=== PATIENT | male | born 1995 | race Caucasian/White ===

== ENCOUNTER 2019-03-26 21:55 | Emergency (ER) | payer OTHER ==
[2019-03-26] MEDS ORDERED: NA CHLORIDE 0.9% 1,000 ML ONE (22:46)
[2019-03-26] MEDS ORDERED: FAMOTIDINE 20 MG/2 ML VIAL IV ONE (22:46)
[2019-03-26] MEDS ORDERED: ONDANSETRON 4 MG/2 ML VIAL ONE (22:46)
[2019-03-26 23:20] LABS: Basophils % 0.7 % (0-1.3); Hematocrit 40.6 % (39.6-49.0); Lymphocytes % 26.8 % (15.3-44.8); RBC Red Blood Cell Count 4.82 M/uL (4.33-5.43); Urine Blood NEGATIVE (NEG); Urine Glucose NEGATIVE (NEG); Urine Protein NEGATIVE (NEG); Urine Specific Gravity >1.030 (1.005-1.030); Urine pH 5.5 (5.0-7.0)
[2019-03-26 23:37] LABS: ALT/SGPT 22 U/L (12-78); AST/SGOT 13 U/L (15-37); Albumin 3.8 g/dL (3.4-5.0); Alkaline Phosphatase 83 U/L (45-117); BUN Blood Urea Nitrogen 13 mg/dL (7-18); Bicarbonate 28 mmol/L (21-32); Bilirubin Direct 0.1 mg/dL (0-0.2); Bilirubin Total 0.3 mg/dL (0.2-1.0); Glucose Level 89 mg/dL (74-106); Lipase 85 U/L (73-393); Potassium 3.9 mmol/L (3.5-5.1); Protein, Total 7.3 g/dL (6.4-8.2); Sodium Level 141 mmol/L (136-145)
--- NOTE | 2019-03-27 00:21 | EDPHYS ---
Physician Documentation [facility] Name: Bang Goldstein Age: 23 yrs Sex: Male : 1995 Arrival Date: 03/26/2019 Time: 21:58 Bed 19 Private MD: ED Physician Hemanth Ortiz HPI: 03/26 22:40 This 23 yrs old Male presents to ER via Ambulatory with complaints of Abd cp Pain > 50 y/o. 22:40 The patient presents with abdominal pain in the epigastric area. Onset: The cp symptoms/episode began/occurred last night. The symptoms radiate to back. Associated signs and symptoms: Pertinent positives: nausea, Pertinent negatives: blood in stools, constipation, diarrhea, fever, testicular pain, vomiting. The symptoms are described as waxing/waning. Severity of pain: in the emergency department the pain has improved mildly. Historical: - Allergies: 22:04 No Known Allergies; aj1 - Home Meds: 22:04 None [Active]; aj1 - PMHx: 22:04 None; aj1 - PSHx: 22:04 Appendectomy; aj1 - Immunization history:: Flu vaccine is not up to date. - Social history:: Smoking status: Patient/guardian denies using tobacco. - Ebola Screening: : Patient denies travel to an Ebola-affected area in the 21 days before illness onset. ROS: 22:50 Constitutional: Negative for body aches, chills, fever, poor PO intake. cp 22:50 Eyes: Negative for injury, pain, redness, and discharge. cp 22:50 ENT: Negative for drainage from ear(s), ear pain, sore throat, difficulty swallowing, difficulty handling secretions. 22:50 Cardiovascular: Negative for chest pain, edema, palpitations. 22:50 Respiratory: Negative for shortness of breath, wheezing. 22:50 Abdomen/GI: Positive for abdominal pain, nausea, Negative for vomiting, diarrhea, constipation, black/tarry stool, rectal bleeding. 22:50 Back: Positive for radiated pain. 22:50 Skin: Negative for rash. 22:50 Neuro: Negative for altered mental status, headache, weakness. 22:50 All other systems are negative. Exam: 22:55 Constitutional: The patient appears in no acute distress, alert, awake, non-toxic, well cp developed, well nourished. 22:55 Head/Face: Normocephalic, atraumatic. cp 22:55 Eyes: Periorbital structures: appear normal, Conjunctiva: normal, no exudate, no injection, Sclera: no appreciated abnormality, Lids and lashes: appear normal, bilaterally. 22:55 ENT: External ear(s): are unremarkable, Ear canal(s): are normal, clear, TM's: are normal, no evidence of bulging, no erythema, Nose: is normal, Mouth: is normal, Posterior pharynx: is normal, airway is patent, no erythema, no exudate. 22:55 Chest/axilla: Inspection: normal, Palpation: is normal, no crepitus, no tenderness. 22:55 Cardiovascular: Rate: normal, Rhythm: regular, Heart sounds: murmur, not appreciated. 22:55 Respiratory: the patient does not display signs of respiratory distress, Respirations: normal, no use of accessory muscles, no retractions, no splinting, no tachypnea, labored breathing, is not present, Breath sounds: are clear throughout, no decreased breath sounds, no stridor, no wheezing. 22:55 Abdomen/GI: Inspection: abdomen appears normal, Bowel sounds: active, all quadrants, Palpation: soft, in all quadrants, mild abdominal tenderness, in the epigastric area, rebound tenderness, is not appreciated, voluntary guarding, is not appreciated. 22:55 Back: ROM is normal. Vital Signs: 22:04 BP 134 / 90; Pulse 61; Resp 18; Temp 98.1; Pulse Ox 100% on R/A; Weight 102.51 kg (R); aj1 Height 6 ft. 1 in. (185.42 cm) (R); 23:20 BP 118 / 69; Pulse 56; Resp 17; Pulse Ox 100% ; rr5 03/27 00:10 BP 126 / 78; Pulse 62; Resp 18; Temp 98; Pulse Ox 99% on R/A; rr5 03/26 22:04 Body Mass Index 29.82 (102.51 kg, 185.42 cm) aj1 MDM: 03/26 22:06 Patient medically screened. cp 03/27 00:00 Differential diagnosis: appendicitis, cholecystitis, Cholelithiasis, gastritis, cp gastroesophageal reflux disease, pancreatitis, Peptic Ulcer Disease, Perf. Duodenal Ulcer, Perf. Gastric Ulcer. 00:20 Data reviewed: vital signs, nurses notes, lab test result(s), radiologic studies, cp ultrasound. 00:20 Counseling: I had a detailed discussion with the patient and/or guardian regarding: the cp historical points, exam findings, and any diagnostic results supporting the discharge/admit diagnosis, lab results, radiology results, the need for outpatient follow up, a family practitioner, to return to the emergency department if symptoms worsen or persist or if there are any questions or concerns that arise at home. Special discussion: Based on the patient's Hx, exam, and Dx evaluation, there is no indication for emergent surgery or inpatient Tx. It is understood by the patient/guardian that if the Sx's persist or worsen they need to return immediately for re-evaluation. 03/26 22:37 Order name: Basic Metabolic Panel; Complete Time: 00:14 cp 03/26 22:37 Order name: CBC with Diff; Complete Time: 00:14 cp 03/27 00:14 Interpretation: Normal except: WBC 11.1; MCV 84.3. cp 03/26 22:37 Order name: Creatinine for Radiology; Complete Time: 00:14 cp 03/26 22:37 Order name: Hepatic Function; Complete Time: 00:14 cp 03/26 22:37 Order name: Lipase; Complete Time: 00:14 cp 03/26 23:05 Order name: Urine Dipstick--Ancillary (enter results) ar5 03/26 22:37 Order name: IV Saline Lock; Complete Time: 23:14 cp 03/26 22:37 Order name: Labs collected and sent; Complete Time: 23:14 cp 03/26 22:37 Order name: Urine Dipstick-Ancillary (obtain specimen); Complete Time: 23:16 cp 03/26 22:38 Order name: US Abdomen Limited cp 03/26 22:38 Order name: NPO; Complete Time: 22:58 cp 03/27 00:15 Order name: PO challenge; Complete Time: 00:26 cp Administered Medications: 03/26 23:10 Drug: NS 0.9% 1000 ml Route: IV; Rate: 1 bolus; Site: right antecubital; rr5 03/27 00:10 Follow up: Response: No adverse reaction; IV Status: Completed infusion; IV Intake: rr5 1000ml 03/26 23:11 Drug: Pepcid 20 mg Route: IVP; Site: right antecubital; rr5 03/27 00:10 Follow up: Response: No adverse reaction rr5 03/26 23:13 Drug: Zofran 4 mg Route: IVP; Site: right antecubital; rr5 03/27 00:10 Follow up: Response: No adverse reaction rr5 Disposition: 03/27/19 00:20 Discharged to Home. Impression: Epigastric pain. - Condition is Stable. - Discharge Instructions: Abdominal Pain, Adult. - Prescriptions for Protonix 40 mg Oral Tablet, Delayed Release (E.C.) - take 1 tablet by ORAL route once daily; 10 tablet. Zofran 4 mg Oral Tablet - take 1 tablet by ORAL route every 12 hours As needed; 20 tablet. - Medication Reconciliation Form, Thank You Letter, Antibiotic Education, Prescription Opioid Use, Work release form form. - Follow up: Private Physician; When: 2 - 3 days; Reason: Recheck today's complaints. - Problem is new. - Symptoms have improved. Addendum: 03/29/2019 08:58 Co-signature as Attending Physician, Hemanth Ortiz MD I agree with the assessment and c gandhi plan of care. Signatures: Dispatcher [employer] EDDonna Means RN RN aj1 Hemanth Ortiz MD MD cha Page, Corey, PA PA cp Roque, Raymond, RN RN rr5 Corrections: (The following items were deleted from the chart) 03/27 00:29 00:20 03/27/2019 00:20 Discharged to Home. Impression: Epigastric pain. Condition is rr5 Stable. Forms are Medication Reconciliation Form, Thank You Letter, Antibiotic Education, Prescription Opioid Use. Follow up: Private Physician; When: 2 - 3 days; Reason: Recheck today's complaints. Problem is new. Symptoms have improved. cp
--- NOTE | 2019-03-27 00:21 | ER ---
Nurse's Notes [facility] Name: Bang Goldstein Age: 23 yrs Sex: Male : 1995 Arrival Date: 03/26/2019 Time: 21:58 Bed 19 Private MD: Diagnosis: Epigastric pain Presentation: 03/26 22:00 Presenting complaint: Patient states: "I just went to the Urgent Care, the past couple aj1 days I've had flu like symptoms, I dealt with that but Im still having nausea and fatigue and last night I started having abdominal pain. It got to the point that my stomach was cramping really bad, but I'm not throwing up, but its not coming out the other way either. I went to urgent care to get Phenergan or Zofran, but they suggested it sounded like gallstones and said to go to the ER" Patient reports epigastric pain that radiates to his back. Reports that pain does not get worse with eating or drinking. Transition of care: patient was not received from another setting of care. Onset of symptoms was March 26, 2019. Risk Assessment: Do you want to hurt yourself or someone else? Patient reports no desire to harm self or others. Initial Sepsis Screen: Does the patient meet any 2 criteria? No. Patient's initial sepsis screen is negative. Does the patient have a suspected source of infection? No. Patient's initial sepsis screen is negative. Care prior to arrival: None. 22:00 Method Of Arrival: Ambulatory aj1 22:00 Acuity: CAL 3 aj1 Triage Assessment: 22:04 General: Appears in no apparent distress. comfortable, Behavior is calm, cooperative, aj1 appropriate for age. Pain: Complains of pain in epigastric area Pain currently is 7 out of 10 on a pain scale. Neuro: Level of Consciousness is awake, alert, obeys commands. Cardiovascular: Patient's skin is warm and dry. GI: Reports upper abdominal pain. Historical: - Allergies: 22: No Known Allergies; aj1 - Home Meds: 22:04 None [Active]; aj1 - PMHx: 22:04 None; aj1 - PSHx: 22:04 Appendectomy; aj1 - Immunization history:: Flu vaccine is not up to date. - Social history:: Smoking status: Patient/guardian denies using tobacco. - Ebola Screening: : Patient denies travel to an Ebola-affected area in the 21 days before illness onset. Screenin:21 Abuse screen: Denies threats or abuse. Denies injuries from another. Nutritional rr5 screening: No deficits noted. Tuberculosis screening: No symptoms or risk factors identified. Fall Risk IV access (20 points). Total Elam Fall Scale indicates No Risk (0-24 pts). Assessment: 22:00 General: Appears in no apparent distress. comfortable, Behavior is calm, cooperative, rr5 appropriate for age, Reports feeling ill for fatigue for. Pain: Complains of pain in epigastric area Pain does not radiate. Pain currently is 6 out of 10 on a pain scale. Quality of pain is described as crampy, Pain began gradually, Is intermittent. 22:00 Neuro: Level of Consciousness is awake, alert, obeys commands, Oriented to person, rr5 place, time, situation, Appropriate for age. Cardiovascular: Capillary refill < 3 seconds Patient's skin is warm and dry. Respiratory: Reports flu like symptoms Airway is patent Respiratory effort is even, unlabored, Respiratory pattern is regular, symmetrical. GI: Abdomen is round non-distended, Bowel sounds present X 4 quads. Abd is soft and non tender Reports upper abdominal pain, cramping, nausea. : No signs and/or symptoms were reported regarding the genitourinary system. EENT: No signs and/or symptoms were reported regarding the EENT system. Derm: Skin is intact, Skin temperature is warm. Musculoskeletal: Circulation, motion, and sensation intact. Capillary refill < 3 seconds. 23:00 Reassessment: Patient appears in no apparent distress at this time. No changes from rr5 previously documented assessment. Patient and/or family updated on plan of care and expected duration. Pain level reassessed. Patient is alert, oriented x 3, equal unlabored respirations, skin warm/dry/pink. awaiting for results. 03/27 00:20 Reassessment: Patient appears in no apparent distress at this time. Patient is alert, rr5 oriented x 3, equal unlabored respirations, skin warm/dry/pink. no vomiting noted. patient ate some snacks. discharge instruction given and explained without complaints made, verbalized understanding. Patient states symptoms have improved. Vital Signs: 03/26 22:04 BP 134 / 90; Pulse 61; Resp 18; Temp 98.1; Pulse Ox 100% on R/A; Weight 102.51 kg (R); aj1 Height 6 ft. 1 in. (185.42 cm) (R); 23:20 BP 118 / 69; Pulse 56; Resp 17; Pulse Ox 100% ; rr5 03/27 00:10 BP 126 / 78; Pulse 62; Resp 18; Temp 98; Pulse Ox 99% on R/A; rr5 03/26 22:04 Body Mass Index 29.82 (102.51 kg, 185.42 cm) aj1 ED Course: 03/26 21:58 Patient arrived in ED. ag3 22:00 Hemanth Garibay PA is PHCP. cp 22:00 Hemanth Ortiz MD is Attending Physician. cp 22:03 Triage completed. aj1 22:04 Arm band placed on Patient placed in an exam room. aj1 22:05 Patient has correct armband on for positive identification. Bed in low position. Call rr5 light in reach. 22:05 No provider procedures requiring assistance completed. rr5 22:15 Benjamin Small, RN is Primary Nurse. rr5 23:02 US Abdomen Limited In Process Unspecified. EDMS 23:05 Inserted saline lock: 18 gauge in right antecubital area, using aseptic technique. ds4 Blood collected. 23:14 Lipase Sent. ds4 23:14 Hepatic Function Sent. ds4 23:14 Creatinine for Radiology Sent. ds4 23:14 CBC with Diff Sent. ds4 23:14 Basic Metabolic Panel Sent. ds4 03/27 00:20 IV discontinued, intact, bleeding controlled, No redness/swelling at site. Pressure rr5 dressing applied. Administered Medications: 03/26 23:10 Drug: NS 0.9% 1000 ml Route: IV; Rate: 1 bolus; Site: right antecubital; rr5 03/27 00:10 Follow up: Response: No adverse reaction; IV Status: Completed infusion; IV Intake: rr5 1000ml 03/26 23:11 Drug: Pepcid 20 mg Route: IVP; Site: right antecubital; rr5 03/27 00:10 Follow up: Response: No adverse reaction rr5 03/26 23:13 Drug: Zofran 4 mg Route: IVP; Site: right antecubital; rr5 03/27 00:10 Follow up: Response: No adverse reaction rr5 Intake: 00:10 IV: 1000ml; Total: 1000ml. rr5 Outcome: 00:20 Discharge ordered by . cp 00:20 Discharged to home ambulatory, with family. rr5 00:20 Condition: stable 00:20 Discharge instructions given to patient, Instructed on discharge instructions, follow up and referral plans. medication usage, Demonstrated understanding of instructions, follow-up care, medications, Prescriptions given X 2. 00:29 Patient left the ED. rr5 Signatures: Dispatcher [employer] EDDonna Means, RN RN aj1 Gordon Sylvester ds4 Hemanth Garibay PA PA cp Gomez, Alice ag3 Benjamin Small, RN RN rr5
[2019-03-27 01:03] VITALS: TEMP 98.1; O2SAT 100
[2019-03-27 01:05] VITALS: BP 118/69
--- NOTE | 2019-03-27 07:56 | RAD REPORT ---
EXAM DESCRIPTION: US - Abdomen Exam Limited - 03/26/2019 11:13 pm CLINICAL HISTORY: Abdominal pain. 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 A gallstone is not seen. The biliary tree is normal caliber. IMPRESSION: Grossly normal gallbladder ultrasound
== END 2019-03-27 00:29 | disposition home or self-care (01) ==
LOC: ER 21:55
DX: R10.13 Epigastric pain (principal)
CPT/HCPCS: 96361; 85025; 80048; 36415; 80076; 81003; 83690; 76705; 96375; 96374; 99284; J7030; J2405

== ENCOUNTER 2019-03-29 16:34 | Emergency (ER) | payer OTHER ==
[2019-03-29] MEDS ORDERED: MORPHINE 4 MG/ML SYR ONE (17:13)
[2019-03-29] MEDS ORDERED: ONDANSETRON 4 MG/2 ML VIAL ONE (17:13)
[2019-03-29] MEDS ORDERED: NA CHLORIDE 0.9% 1,000 ML ONE ×2 (17:14→18:40)
[2019-03-29] MEDS ORDERED: FAMOTIDINE 20 MG/2 ML VIAL IV ONE (17:14)
[2019-03-29 17:30] LABS: Absolute Lymphocytes (CBC) 1.7 K/uL (0.7-4.9); Basophils % 0.5 % (0-1.3); Lymphocytes % 15.3 % (15.3-44.8); MPV 9.1 fL (7.6-11.3); RBC Red Blood Cell Count 5.54 M/uL (4.33-5.43)
[2019-03-29 17:41] LABS: Albumin 4.3 g/dL (3.4-5.0); Bilirubin Direct 0.2 mg/dL (0-0.2); Bilirubin Total 0.8 mg/dL (0.2-1.0); Potassium 4.1 mmol/L (3.5-5.1); Protein, Total 8.5 g/dL (6.4-8.2)
[2019-03-29] MEDS ORDERED: METRONIDAZOLE 500mg IVPB 500 MG/100 ML BAG IV ONE (18:40)
[2019-03-29] MEDS ORDERED: CIPROFLOXACIN 400mg IV 400 MG/200 ML BAG IV ONE (18:40)
[2019-03-29 18:55] LABS: Urine Blood NEGATIVE (NEG); Urine Glucose NEGATIVE (NEG); Urine Protein NEGATIVE (NEG); Urine Specific Gravity 1.015 (1.005-1.030)
--- NOTE | 2019-03-29 19:52 | RAD REPORT ---
EXAM DESCRIPTION: CT - Abdomen Pelvis W Contrast - 03/29/2019 7:40 pm CLINICAL HISTORY: Abdominal pain. COMPARISON: None. TECHNIQUE: Computed axial tomography of the abdomen and pelvis was obtained. 100 cc Isovue-300 is ad ministered intravenously. Oral contrast was given. All CT scans are performed using dose optimization technique as appropriate and may include automated exposure control or mA/KV adjustment according to patient size. FINDINGS: Mild fatty liver The Spleen, pancreas, adrenals and kidneys appear unremarkable. There is no evidence of diverticulitis The wall of the distal stomach appears mildly thickened. The stomach is mildly distended IMPRESSION: Mild thickening of the wall of the distal stomach may indicate gastritis
[2019-03-29] MEDS ORDERED: PANTOPRAZOLE 40 MG INJ ONE (20:03)
[2019-03-29] MEDS ORDERED: LIDOCAINE VISCOUS 2% SOLN 15 ML UDC ONE (20:03)
[2019-03-29] MEDS ORDERED: MAGNE/ALUM HYDROXD 30 ML UCUP ONE (20:03)
--- NOTE | 2019-03-29 21:01 | EDPHYS ---
Physician Documentation [facility] Name: Bang Goldstein Age: 23 yrs Sex: Male : 1995 Arrival Date: 03/29/2019 Time: 16:36 Bed 18 Private MD: Elian Nicole B ED Physician Hemanth Ortiz HPI: 03/29 17:21 This 23 yrs old Male presents to ER via Ambulatory with complaints of vladimir Abdominal Pain. 17:21 The patient presents with abdominal pain abdominal distention. Onset: The vladimir symptoms/episode began/occurred 3 day(s) ago. The patient presents to the emergency department with nausea, vomiting, abdominal pain, of the anterior aspect of right lateral abdomen, posterior aspect of right lateral abdomen, right upper quadrant and right lower quadrant. Onset: The symptoms/episode began/occurred 3 day(s) ago. Possible causes: unknown. The symptoms are aggravated by nothing. The symptoms are alleviated by nothing. The symptoms do not radiate. Associated signs and symptoms: The patient has no apparent associated signs or symptoms. Historical: - Allergies: 16:37 No Known Allergies; tw2 - Home Meds: 16:37 None [Active]; tw2 - PMHx: 16:37 None; tw2 - PSHx: 16:37 Appendectomy; tw2 16:48 Hernia repair; tw2 - Immunization history:: Adult Immunizations. - Social history:: Smoking status: . - Ebola Screening: : Patient denies travel to an Ebola-affected area in the 21 days before illness onset. ROS: 17:22 Constitutional: Negative for fever, chills, and weight loss, Eyes: Negative for injury, vladimir pain, redness, and discharge, ENT: Negative for injury, pain, and discharge, Neck: Negative for injury, pain, and swelling, Cardiovascular: Negative for chest pain, palpitations, and edema, Respiratory: Negative for shortness of breath, cough, wheezing, and pleuritic chest pain, Back: Negative for injury and pain, : Negative for injury, bleeding, discharge, and swelling, MS/Extremity: Negative for injury and deformity, Skin: Negative for injury, rash, and discoloration, Neuro: Negative for headache, weakness, numbness, tingling, and seizure, Psych: Negative for depression, anxiety, suicide ideation, homicidal ideation, and hallucinations, Allergy/Immunology: Negative for hives, rash, and allergies, Endocrine: Negative for neck swelling, polydipsia, polyuria, polyphagia, and marked weight changes, Hematologic/Lymphatic: Negative for swollen nodes, abnormal bleeding, and unusual bruising. 17:22 Abdomen/GI: Positive for abdominal pain, nausea, abdominal cramps, abdominal distension, of the right upper quadrant, left upper quadrant, right lower quadrant and left lower quadrant. Exam: 17:22 Constitutional: This is a well developed, well nourished patient who is awake, alert, vladimir and in no acute distress. Head/Face: Normocephalic, atraumatic. Eyes: Pupils equal round and reactive to light, extra-ocular motions intact. Lids and lashes normal. Conjunctiva and sclera are non-icteric and not injected. Cornea within normal limits. Periorbital areas with no swelling, redness, or edema. ENT: Nares patent. No nasal discharge, no septal abnormalities noted. Tympanic membranes are normal and external auditory canals are clear. Oropharynx with no redness, swelling, or masses, exudates, or evidence of obstruction, uvula midline. Mucous membranes moist. Neck: Trachea midline, no thyromegaly or masses palpated, and no cervical lymphadenopathy. Supple, full range of motion without nuchal rigidity, or vertebral point tenderness. No Meningismus. Chest/axilla: Normal chest wall appearance and motion. Nontender with no deformity. No lesions are appreciated. Cardiovascular: Regular rate and rhythm with a normal S1 and S2. No gallops, murmurs, or rubs. Normal PMI, no JVD. No pulse deficits. Respiratory: Lungs have equal breath sounds bilaterally, clear to auscultation and percussion. No rales, rhonchi or wheezes noted. No increased work of breathing, no retractions or nasal flaring. Back: No spinal tenderness. No costovertebral tenderness. Full range of motion. Male : Normal genitalia with no discharge or lesions. Skin: Warm, dry with normal turgor. Normal color with no rashes, no lesions, and no evidence of cellulitis. MS/ Extremity: Pulses equal, no cyanosis. Neurovascular intact. Full, normal range of motion. Neuro: Awake and alert, GCS 15, oriented to person, place, time, and situation. Cranial nerves II-XII grossly intact. Motor strength 5/5 in all extremities. Sensory grossly intact. Cerebellar exam normal. Normal gait. Psych: Awake, alert, with orientation to person, place and time. Behavior, mood, and affect are within normal limits. 17:22 Abdomen/GI: Inspection: distension, that is mild, Bowel sounds: hyperactive, Palpation: mild abdominal tenderness, in the right upper quadrant and right lower quadrant, Liver: no appreciated palpable abnormalities, Hernia: not appreciated. Vital Signs: 16:48 BP 141 / 90; Pulse 85; Resp 18; Temp 98.1(TE); Pulse Ox 99% on R/A; Weight 99.34 kg tw2 (R); Height 6 ft. 1 in. (185.42 cm); Pain 6/10; 17:44 BP 125 / 81; Pulse 57; Resp 16 S; Pulse Ox 100% on R/A; ca1 18:45 BP 122 / 69; Pulse 72; Resp 16 S; Pulse Ox 100% on R/A; ca1 19:12 BP 122 / 69; Pulse 76; Resp 18; Pulse Ox 100% ; ca1 20:30 BP 101 / 67; Pulse 70; Resp 18; Pulse Ox 100% ; wh 16:48 Body Mass Index 28.89 (99.34 kg, 185.42 cm) tw2 MDM: 16:49 Patient medically screened. [facility] 17:22 Data reviewed: vital signs, nurses notes, lab test result(s), radiologic studies, CT vladimir scan. 03/29 16:54 Order name: Basic Metabolic Panel; Complete Time: 18:31 [facility] 03/29 16:54 Order name: CBC with Diff; Complete Time: 18:31 [facility] 03/29 16:54 Order name: Creatinine for Radiology; Complete Time: 18:31 [facility] 03/29 16:54 Order name: Hepatic Function; Complete Time: 18:31 [facility] 03/29 16:54 Order name: Lipase; Complete Time: 18:31 [facility] 03/29 16:54 Order name: Urine Culture [facility] 03/29 16:54 Order name: CT Abd/Pelvis - PO and IV Contrast [facility] 03/29 18:53 Order name: Urine Dipstick--Ancillary (enter results) 03/29 18:56 Order name: Urine Dipstick-Ancillary; Complete Time: 19:56 [facility] 03/29 16:54 Order name: IV Saline Lock; Complete Time: 17:09 [facility] 03/29 16:54 Order name: Labs collected and sent; Complete Time: 17: [facility] 03/29 16:54 Order name: Urine Dipstick-Ancillary (obtain specimen); Complete Time: 19:00 [facility] Administered Medications: 17:15 Drug: NS 0.9% 1000 ml Route: IV; Rate: 1 bolus; Site: right antecubital; ca1 18:44 Follow up: Response: No adverse reaction; IV Status: Completed infusion; IV Intake: ca1 1000ml 17:17 Drug: Zofran 4 mg Route: IVP; Site: right antecubital; ca1 18:44 Follow up: Response: No adverse reaction; Nausea is decreased; RASS: Alert and Calm (0) ca1 17:23 Drug: Pepcid 20 mg Route: IVP; Site: right antecubital; ca1 18:44 Follow up: Response: No adverse reaction ca1 17:29 Drug: morphine 4 mg {Note: RASS - 0.} Route: IVP; Site: right antecubital; ca1 18:43 Follow up: Response: No adverse reaction; Pain is decreased; RASS: Alert and Calm (0) [facility] 18:43 Drug: Flagyl 500 mg Volume: 100 ml; Route: IVPB; Rate: 200 ml/hr; Infused Over: 30 ca1 mins; Site: right antecubital; 21:28 Follow up: Response: No adverse reaction; IV Status: Completed infusion 18:43 Drug: NS 0.9% 1000 ml Route: IV; Rate: 1 bolus; Site: right antecubital; [facility] 21:28 Follow up: Response: No adverse reaction; IV Status: Completed infusion 19:55 Drug: Cipro 400 mg Volume: 200 ml; Route: IVPB; Infused Over: 60 mins; Site: right antecubital; 21:28 Follow up: Response: No adverse reaction; IV Status: Completed infusion 20:10 Drug: ProTONIX 80 mg Route: IVP; Site: right antecubital; 21:28 Follow up: Response: No adverse reaction 20:12 Drug: GI Cocktail without - (Maalox Suspension 30 ml, Lidocaine Liquid 2 % 15 wh ml) Route: PO; 21:28 Follow up: Response: No adverse reaction; Pain is decreased Disposition: 03/29/19 21:00 Discharged to Home. Impression: Abdominal tenderness, Gastritis, unspecified, Vomiting. - Condition is Stable. - Discharge Instructions: Abdominal Pain, Adult, Gastritis, Adult, Nausea and Vomiting, Adult, Gastritis, Adult, [id number], Nausea and Vomiting, Adult, [id number], Abdominal Pain, Adult, [id number]. - Prescriptions for Bentyl 20 mg Oral Tablet - take 1 tablet by ORAL route every 6 hours As needed; 20 tablet. Protonix 40 mg Oral Tablet - take 1 tablet by ORAL route once daily; 30 tablet. Tylenol- Codeine #3 300-30 mg Oral Tablet - take 2 tablets by ORAL route every 6 hours As needed; 20 tablet. Zofran 4 mg Oral Tablet - take 1 tablet by ORAL route every 12 hours As needed; 20 tablet. Carafate 1 gram Oral Tablet - take 1 tablet by ORAL route 4 times per day take on an empty stomach, beginning on waking and last dose at bedtime; 100 tablet. - Medication Reconciliation Form, Thank You Letter, Antibiotic Education, Prescription Opioid Use form. - Follow up: Elian Nicole MD; When: 2 - 3 days; Reason: Recheck today's complaints, Continuance of care, Re-evaluation by your physician. Follow up: Kam Devlin MD; When: 2 - 3 days; Reason: Recheck today's complaints, Re-evaluation by your physician. - Problem is new. - Symptoms have improved. Signatures: Dispatcher [employer] EDTX Hemanth Ortiz MD MD cha Wise, Tara, RN RN tw2 Oliver Sotelo Cheryl, RN RN ca1 Corrections: (The following items were deleted from the chart) 21:29 21:00 03/29/2019 21:00 Discharged to Home. Impression: Abdominal tenderness; Gastritis, wh unspecified; Vomiting. Condition is Stable. Forms are Medication Reconciliation Form, Thank You Letter, Antibiotic Education, Prescription Opioid Use. Follow up: Elian Nicole; When: 2 - 3 days; Reason: Recheck today's complaints, Continuance of care, Re-evaluation by your physician. Follow up: Kam Devlin; When: 2 - 3 days; Reason: Recheck today's complaints, Re-evaluation by your physician. Problem is new. Symptoms have improved. vladimir
--- NOTE | 2019-03-29 21:01 | ER ---
Nurse's Notes [facility] Name: Bang Goldstein Age: 23 yrs Sex: Male : 1995 Arrival Date: 03/29/2019 Time: 16:36 Bed 18 Private MD: Elian Nicole B Diagnosis: Abdominal tenderness;Gastritis, unspecified;Vomiting Presentation: 03/29 16:38 Transition of care: patient was not received from another setting of care. Onset of tw2 symptoms was March 29, 2019. Risk Assessment: Do you want to hurt yourself or someone else? Patient reports no desire to harm self or others. Initial Sepsis Screen: Does the patient meet any 2 criteria? No. Patient's initial sepsis screen is negative. Does the patient have a suspected source of infection? No. Patient's initial sepsis screen is negative. Care prior to arrival: None. 16:38 Acuity: CAL 3 tw2 16:38 Method Of Arrival: Ambulatory tw2 16:46 Presenting complaint: Patient states: abdominal pain started Friday, i had some tw2 headcold symptoms, took a whole bunch of medicine dayquil, mucinex, lara, between then and now i have increased and worsening stomach pain and cramps, i feel nauseous, denies diarrhea, i feel like i havent been passing much of stool that i feel i should have, dr. nicole thinks i might have a partial blockage from some scar tissue from appendicitis i had. 16:48 Presenting complaint: Patient states: and i have really bad heartburn. tw2 Triage Assessment: 16:37 General: Appears in no apparent distress. Behavior is calm, cooperative, appropriate tw2 for age. Pain: Complains of pain in abdomen. GI: Reports lower abdominal pain, upper abdominal pain, diarrhea. Historical: - Allergies: 16:37 No Known Allergies; tw2 - Home Meds: 16:37 None [Active]; tw2 - PMHx: 16:37 None; tw2 - PSHx: 16:37 Appendectomy; tw2 16:48 Hernia repair; tw2 - Immunization history:: Adult Immunizations. - Social history:: Smoking status: . - Ebola Screening: : Patient denies travel to an Ebola-affected area in the 21 days before illness onset. Screenin:37 Abuse screen: Denies threats or abuse. Nutritional screening: No deficits noted. tw2 Tuberculosis screening: No symptoms or risk factors identified. Fall Risk None identified. Assessment: 17:00 General: Appears in no apparent distress. comfortable, Behavior is calm, cooperative, ca1 appropriate for age. Pain: Complains of pain in abdomen Pain radiates to low back area Pain currently is 6 out of 10 on a pain scale. at worst was 9 out of 10 on a pain scale. Quality of pain is described as crampy, dull, Pain began 5 days ago Is continuous. Neuro: Level of Consciousness is awake, alert, obeys commands, Oriented to person, place, time, situation. Cardiovascular: Heart tones S1 S2 present Capillary refill < 3 seconds Patient's skin is warm and dry. Respiratory: Airway is patent Respiratory effort is even, unlabored, Respiratory pattern is regular, symmetrical, Breath sounds are clear bilaterally. GI: Bowel sounds present X 4 quads. Abd is soft X 4 quads Abdomen is tender to palpation in right lower quadrant Reports nausea. : No deficits noted. No signs and/or symptoms were reported regarding the genitourinary system. EENT: No deficits noted. No signs and/or symptoms were reported regarding the EENT system. Derm: Skin is intact, is healthy with good turgor, Skin is pink, warm \T\ dry. Musculoskeletal: Circulation, motion, and sensation intact. Capillary refill < 3 seconds. 17:44 Reassessment: Patient appears in no apparent distress at this time. Patient and/or ca1 family updated on plan of care and expected duration. Pain level reassessed. Patient is alert, oriented x 3, equal unlabored respirations, skin warm/dry/pink. 18:45 Reassessment: Patient appears in no apparent distress at this time. Patient and/or ca1 family updated on plan of care and expected duration. Pain level reassessed. Patient is alert, oriented x 3, equal unlabored respirations, skin warm/dry/pink. Pending CT scan. 19:12 Reassessment: Patient appears in no apparent distress at this time. Patient and/or ca1 family updated on plan of care and expected duration. Pain level reassessed. Patient is alert, oriented x 3, equal unlabored respirations, skin warm/dry/pink. 19:30 Reassessment: Patient appears in no apparent distress at this time. No changes from wh previously documented assessment. Patient and/or family updated on plan of care and expected duration. Pain level reassessed. Patient is alert, oriented x 3, equal unlabored respirations, skin warm/dry/pink. 20:49 Reassessment: No changes from previously documented assessment. Patient and/or family wh updated on plan of care and expected duration. Pain level reassessed. Patient is alert, oriented x 3, equal unlabored respirations, skin warm/dry/pink. 21:26 Reassessment: Patient appears in no apparent distress at this time. No changes from previously documented assessment. Patient and/or family updated on plan of care and expected duration. Pain level reassessed. Patient is alert, oriented x 3, equal unlabored respirations, skin warm/dry/pink. Patient states feeling better. Patient states symptoms have improved. Vital Signs: 16:48 BP 141 / 90; Pulse 85; Resp 18; Temp 98.1(TE); Pulse Ox 99% on R/A; Weight 99.34 kg tw2 (R); Height 6 ft. 1 in. (185.42 cm); Pain 6/10; 17:44 BP 125 / 81; Pulse 57; Resp 16 S; Pulse Ox 100% on R/A; ca1 18:45 BP 122 / 69; Pulse 72; Resp 16 S; Pulse Ox 100% on R/A; ca1 19:12 BP 122 / 69; Pulse 76; Resp 18; Pulse Ox 100% ; ca1 20:30 BP 101 / 67; Pulse 70; Resp 18; Pulse Ox 100% ; wh 16:48 Body Mass Index 28.89 (99.34 kg, 185.42 cm) tw2 ED Course: 16:36 Patient arrived in ED. mr 16:36 Elian Nicole MD is Private Physician. mr 16:37 Arm band placed on. tw2 16:38 Triage completed. tw2 16:49 Hemanth Ortiz MD is Attending Physician. vladimir 16:50 Bed in low position. Call light in reach. Adult w/ patient. tw2 16:56 Marta Pittman, MARIA FERNANDA is Primary Nurse. ca1 17:00 Patient has correct armband on for positive identification. Placed in gown. Bed in low ca1 position. Call light in reach. Side rails up X 1. Pulse ox on. NIBP on. Warm blanket given. 17:09 No provider procedures requiring assistance completed. Initial lab(s) drawn, by ne, ca1 sent to lab. Inserted saline lock: 20 gauge in right antecubital area, using aseptic technique. Blood collected. 19:40 CT Abd/Pelvis - PO and IV Contrast In Process Unspecified. EDMS 20:59 Elian Nicole MD is Referral Physician. vladimir 20:59 Kam Devlin MD is Referral Physician. vladimir 21:27 IV discontinued, intact, bleeding controlled, No redness/swelling at site. Administered Medications: 17:15 Drug: NS 0.9% 1000 ml Route: IV; Rate: 1 bolus; Site: right antecubital; ca1 18:44 Follow up: Response: No adverse reaction; IV Status: Completed infusion; IV Intake: ca1 1000ml 17:17 Drug: Zofran 4 mg Route: IVP; Site: right antecubital; ca1 18:44 Follow up: Response: No adverse reaction; Nausea is decreased; RASS: Alert and Calm (0) ca1 17:23 Drug: Pepcid 20 mg Route: IVP; Site: right antecubital; ca1 18:44 Follow up: Response: No adverse reaction [facility] 17:29 Drug: morphine 4 mg {Note: RASS - 0.} Route: IVP; Site: right antecubital; ca1 18:43 Follow up: Response: No adverse reaction; Pain is decreased; RASS: Alert and Calm (0) ca1 18:43 Drug: Flagyl 500 mg Volume: 100 ml; Route: IVPB; Rate: 200 ml/hr; Infused Over: 30 ca1 mins; Site: right antecubital; 21:28 Follow up: Response: No adverse reaction; IV Status: Completed infusion 18:43 Drug: NS 0.9% 1000 ml Route: IV; Rate: 1 bolus; Site: right antecubital; ca1 21:28 Follow up: Response: No adverse reaction; IV Status: Completed infusion 19:55 Drug: Cipro 400 mg Volume: 200 ml; Route: IVPB; Infused Over: 60 mins; Site: right antecubital; 21:28 Follow up: Response: No adverse reaction; IV Status: Completed infusion 20:10 Drug: ProTONIX 80 mg Route: IVP; Site: right antecubital; 21:28 Follow up: Response: No adverse reaction 20:12 Drug: GI Cocktail without - (Maalox Suspension 30 ml, Lidocaine Liquid 2 % 15 wh ml) Route: PO; 21:28 Follow up: Response: No adverse reaction; Pain is decreased Intake: 18:44 IV: 1000ml; Total: 1000ml. ca1 Outcome: 21:00 Discharge ordered by . vladimir 21:26 Discharged to home ambulatory, with family. 21:26 Condition: stable 21:26 Discharge instructions given to patient, family, Instructed on discharge instructions, follow up and referral plans. no drinking with medication, no driving heavy equipment, medication usage, POC Gastritis and Abdominal Pain Demonstrated understanding of instructions, follow-up care, medications, POC Prescriptions given X 4. 21:29 Patient left the ED. Signatures: Dispatcher [employer] EDMS Hemanth Ortiz MD MD cha Rivera, Layla Rashid, RN RN tw2 Oliver Sotelo Marta Pittman RN RN ca1
[2019-03-29 21:39] VITALS: TEMP 98.1
[2019-03-29 21:40] VITALS: O2SAT 100
[2019-03-29 21:43] VITALS: BP 101/67
== END 2019-03-29 21:29 | disposition home or self-care (01) ==
LOC: ER 16:34
DX: K29.70 Gastritis, unspecified, without bleeding (principal); R10.819 Abdominal tenderness, unspecified site
CPT/HCPCS: 87088; 85025; 87086; 80048; 36415; 80076; 81003; 83690; 74177; Q9967; C9113; J7030 ×2; J2405; J0744; 96361; 96365; 96366; 96375; 99284

== ENCOUNTER → 2023-05-22 | Emergency (ER) | payer OTHER ==
--- OUTSIDE RECORDS SUMMARY | 2023-05-22 19:34 | XMS REPORT | Continuity of Care Document ---
Author Name Unknown Address [address] [facility] [address] [place] [address] [facility] thconnect Address [address] [facility]. [address] [place] [address] Care Team Providers Care Cabinet Maker Name Role Phone LISA ABBOTT Primary Care Physician UnavailJayson Petersen Attending Clinician Unavailabl e Only, Dic Test Attending Clinician Unavailable Oh Diaz MD Attending Clinician [phone] [place] DIAZ Attending Clinician Unavailable Torsten Stroud MD Attending Clinician Lab, Adc Fam Pob I Attending Clinician Unavailab Donna Alcantar Attending Clinician [phone] DONNA CAMPOS Attending Clinician Unavailable Doctor Unassigned, [place] Attending Clinician U navailable KNOW, DOES_NOT Admitting Clinician Unavailable Payers Payer Name Policy Type Policy Number Effective Date Expirati on Date Source [id number] 2018 00:00:00 Problems Condition Name Condition Details Condition Category Status Onset Date Resolution Date Last Treatment Date Treating Clinician Comments Source No known active problems No known active problems Disease [facility] Allergies, Adverse Reactions, Alerts Allergy Name Allergy Type Status Severity Reaction(s) Onset Date Inactive Date Treating Clinician Comments Source NO KNOWN ALLERGIE S Drug Class Active [facility] Social History Social Habit Start Date Stop Date Quantity Comments Source Exposure to SARS-CoV-2 (event) Not sure [facility] Tobacco use and exposure 2019-03-26 00:00:00 2019-03-26 00:00:00 Never used [facility] Sex Assigned At 1995 00:00:00 1995 00:00:00 [facility] Smoking Status Start Date Stop Date Source Never smoker [facility] Medications Ordered Medication Name Filled Medication Name Start Date Stop Date Current Medication? Ordering Clinician Indication Dosage Frequency Signature (SIG) Comments Components Source tetanus-dip htheria toxoids (TDVAX) 2-2 Lf unit/0.5 mL injection 0.5 mL 2019-06 03:00: 00 06-01 03:06 :00 No .5mL 0.5 mL, Intramuscu lar, ONCE, 1 dose, Fri05/31/20 at 2100, Routine [facility] ibuprofen (MOTRIN IB) 200 mg tablet 2019-06 00:00: 00 Yes [id number] 400mg Take 2 tablets by mouth every 6 (six) hours as needed for Pain (scale 1-3) for up to 30 doses. [facility] ibuprofen (MOTRIN IB) 200 mg tablet 2019-06 00:00: 00 Yes [id number] 400mg Take 2 tablets by mouth every 6 (six) hours as needed for Pain (scale 1-3) for up to 30 doses. [facility] amoxicillin -pot clavulanate 500 mg 500-125 mg tablet 2019-06 00:00: 00 06-11 05:59 :00 No [id number] 500mg Take 1 tablet by mouth every 8 (eight) hours for 10 days. [facility] ondansetron (ZOFRAN ODT) 8 mg disintegrat ing tablet 2018-06 00:00: 00 Yes [id number] 8mg Take 1 tablet by mouth every 8 (eight) hours as needed for Nausea and Vomiting (N/V) for up to 6 doses. [facility] ondansetron (ZOFRAN ODT) 8 mg disintegrat ing tablet 2018-06 00:00: 00 Yes [id number] 8mg Take 1 tablet by mouth every 8 (eight) hours as needed for Nausea and Vomiting (N/V) for up to 6 doses. [facility] ondansetron (ZOFRAN ODT) 8 mg disintegrat ing tablet 2018-06 00:00: 00 Yes [id number] 8mg Take 1 tablet by mouth every 8 (eight) hours as needed for Nausea and Vomiting (N/V) for up to 6 doses. [facility] ondansetron (ZOFRAN ODT) 8 mg disintegrat ing tablet 2018-06 00:00: 00 Yes [id number] 8mg Take 1 tablet by mouth every 8 (eight) hours as needed for Nausea and Vomiting (N/V) for up to 6 doses. [facility] Vital Signs Vital Name Observation Time Observation Value Comments S ource Systolic blood pressure 2020-06-01 02:34:00 139 mm[Hg] [facility] Diastolic blood pressure 2020-06-01 02:34:00 69 mm[Hg] [facility] Heart rate 2020-06-01 02:34:00 91 /min [facility] Body temperature 2020-06-01 02:34:00 36.11 Nuha [facility] Respiratory rate 2020-06-01 02:34:00 20 /min [facility] Body height 2020-06-01 02:34:00 185.4 cm [facility] Body weight 2020-06-01 02:34:00 97.523 kg [facility] BMI 2020-06-01 02:34:00 28.37 kg/m2 [facility] Oxygen saturation in Arterial blood by Pulse oximetry 2020-06-01 02:34:00 99 /min [facility] Encounters Start Date/Time End Date/Time Encounter Type Admission Type Attending Clinicians Care Facility Care Department Encounter ID Source 2021-03-31 13:57:58 Emergency [facility] [id number] [facility] 2020-02-01 00:09:00 Inpatient [facility] [id number] 2021-06-06 18:15:00 2021-06-06 18:30:00 Laboratory Only Only, Dic Test Oh Diaz [facility] 1.114 [id number] [facility] 2021-06-06 18:15:00 2021-06-06 18:15:00 Outpatient Priyanka DIAZ [place] [facility] [id number] [facility] 2020-05-31 20:37:00 2020-05-31 21:23:00 Emergency Torsten Stroud [facility] ([facility]) 1. [id number] [facility] 2020-01-18 13:16:00 2020-01-18 13:16:00 Outpatient Jayson Hebert [facility] [id number] [facility] 2019-12-22 17:16:32 2019-12-22 17:36:32 Laboratory Only [facility] 1. [id number] [facility] 2019-12-22 17:00:00 2019-12-22 17:00:00 Outpatient DONNA WALL [facility] [id number] [facility] 2019-12-22 00:00:00 2019-12-22 00:00:00 Letter (Out) Doctor Unassigned, [place] [facility] 1.114 [id number] [facility]
[2023-05-22 20:32] LABS: Absolute Lymphocytes (CBC) 0.8 K/uL (0.7-4.9); Lymphocytes % 8.4 % (15.3-44.8); MCV 87.6 fL (80-100); MPV 7.5 fL (7.6-11.3); Platelets 269 thou/uL (152-406); RBC Red Blood Cell Count 5.03 M/uL (4.33-5.43)
[2023-05-22 20:45] LABS: Albumin 3.8 g/dL (3.4-5.0); Bilirubin Total 0.4 mg/dL (0.2-1.0); Potassium 4.3 mEq/L (3.5-5.1)
--- NOTE | 2023-05-22 21:13 | ER ---
Nurse's Notes [facility] Name: Bang Goldstein Age: 27 yrs Sex: Male : 1995 Arrival Date: 05/22/2023 Time: 19:30 Bed Treatment Private MD: Diagnosis: Viral rash, petechiae, qwpc-skqy-hug-mouth disease Presentation: 05/22 20:11 Chief complaint: Patient states: skin sores, generalized but worse on hands and feet. me1 Patient's son recently had hand, foot and mouth disease. Patient had flu about 2 weeks ago, got well and then when he started becoming congested again about 3 days ago this rash/sores broke out. Coronavirus screen: Vaccine status: Patient reports being unvaccinated. Ebola Screen: No symptoms or risks identified at this time. Initial Sepsis Screen: Does the patient meet any 2 criteria? HR > 90 bpm. No. Patient's initial sepsis screen is negative. Does the patient have a suspected source of infection? Yes: Productive cough/pneumonia Skin breakdown/wound. Risk Assessment: Do you want to hurt yourself or someone else? Patient reports no desire to harm self or others. Onset of symptoms was May 19, 2023. 20:11 Method Of Arrival: [facility] 20:11 Acuity: CAL 4 sd1 Triage Assessment: 20:15 General: Appears uncomfortable, well groomed, well developed, well nourished, Behavior me1 is calm, cooperative, appropriate for age, Reports congestion and skin sores that started 3 days ago. Skin sores/rash is generalized but more concentrated on hands and feet. Pain: Complains of pain in generalized Pain does not radiate. Pain currently is 4 out of 10 on a pain scale. Quality of pain is described as burning, tingling, Pain began gradually, 2-3 days ago. Is continuous. Neuro: Level of Consciousness is awake, alert, obeys commands, Oriented to person, place, time, situation, Appropriate for age. Cardiovascular: Capillary refill < 3 seconds Patient's skin is warm and dry. Respiratory: Airway is patent Respiratory effort is even, unlabored, Respiratory pattern is regular, symmetrical. Derm: Rash noted that is red, on generalized- worse on hands and feet. Historical: - Allergies: 20:15 No Known Allergies; me1 - PMHx: 20:15 None; me1 - PSHx: 20:15 Appendectomy; inguinal hernia repair; me1 - Immunization history:: Adult Immunizations up to date. - Social history:: Smoking status: Patient denies any tobacco usage or history of. Screenin:20 [facility] ED Fall Risk Assessment (Adult) History of falling in the last 3 months, me1 including since admission No falls in past 3 months (0 pts) Confusion or Disorientation No (0 pts) Intoxicated or Sedated No (0 pts) Impaired Gait No (0 pts) Mobility Assist Device Used No (0 pt) Altered Elimination No (0 pt) Score/Fall Risk Level 0 - 2 = Low Risk Maintained a safe environment, Provided non-skid footwear, Hourly rounding (assess needs \T\ fall precautionary measures) done. Abuse screen: Denies threats or abuse. Nutritional screening: No deficits noted. Tuberculosis screening: No symptoms or risk factors identified. Assessment: 20:20 General: See triage assessment. me1 Vital Signs: 20:11 BP 136 / 79; Pulse 102; Resp 18; Temp 99(O); Pulse Ox 98% on R/A; Weight 92.99 kg; me1 Height 6 ft. 5 in. ; Pain 6/10; 21:28 BP 129 / 61; Pulse 106; Resp 18; Pulse Ox 99% on R/A; me1 20:11 Body Mass Index 24.31 (92.99 kg, 195.58 cm) me1 20:11 Pain Scale: Adult sd1 ED Course: 19:33 Patient arrived in ED. mr 19:40 Duke Mcdaniels MD is Attending Physician. rt 20:10 Attending Physician role handed off by Duke Mcdaniels MD sp3 20:10 Jefferson Frances MD is Attending Physician. sp3 20:11 Reny Quinteros, MARIA FERNANDA is Primary Nurse. me1 20:15 Triage completed. me1 20:15 Arm band placed on Patient placed in waiting room. me1 20:19 Inserted saline lock: 20 gauge in right antecubital area, using aseptic technique. kmf Blood collected. 20:20 Patient has correct armband on for positive identification. Bed in low position. [facility] light in reach. Side rails up X 1. Provided Education on: POC. Verbalized understanding. . 20:20 CMP Sent. kmf 20:20 CBC with Diff Sent. kmf 20:20 No provider procedures requiring assistance completed. me1 21:29 IV discontinued, intact, bleeding controlled, No redness/swelling at site. Pressure me1 dressing applied. Administered Medications: No medications were administered Medication: 20:20 VIS not applicable for this client. me1 Outcome: 21:11 Discharge ordered by . sp3 21:29 Discharged to home ambulatory, with significant other, me1 21:29 Condition: stable 21:29 Discharge instructions given to patient, significant other, Instructed on discharge instructions, follow up and referral plans. medication usage, Demonstrated understanding of instructions, follow-up care, medications, 21:29 Patient left the ED. me1 Signatures: Roz Sanford, Reg Reg mr Jefferson Frances MD MD sp3 Duke Mcdaniels MD MD rt Reny Quinteros, RN RN me1 Raquel Lagos f
--- NOTE | 2023-05-22 21:13 | EDPHYS ---
Physician Documentation [facility] Name: Bang Goldstein Age: 27 yrs Sex: Male : 1995 Arrival Date: 05/22/2023 Time: 19:30 Bed Treatment Private MD: ED Physician Jefferson Frances HPI: 05/22 20:00 This 27 yrs old Male presents to ER via Unassigned with complaints of Skin Sore(s). rt 20:00 Patient presents to the ED with a rash, progressively worsening over the past week. Was rt recently treated for bronchitis, with steroids and cephalosporin. Reports that the symptoms have been worsening, become painful. Denies difficulty breathing. Denies other acute complaints, symptoms are moderate severity, no other aggravating elevating factors.. Historical: - Allergies: 20:15 No Known Allergies; me1 - PMHx: 20:15 None; me1 - PSHx: 20:15 Appendectomy; inguinal hernia repair; me1 - Immunization history:: Adult Immunizations up to date. - Social history:: Smoking status: Patient denies any tobacco usage or history of. ROS: 20:00 Constitutional: Negative for fever, chills, and weight loss, Cardiovascular: Negative rt for chest pain, palpitations, and edema, Respiratory: Negative for shortness of breath, cough, wheezing, and pleuritic chest pain, Abdomen/GI: Negative for abdominal pain, nausea, vomiting, diarrhea, and constipation, MS/Extremity: Negative for injury and deformity, Neuro: Negative for headache, weakness, numbness, tingling, and seizure, Psych: Negative for depression, anxiety, suicide ideation, homicidal ideation, and hallucinations, 20:00 Skin: Positive for lesions, rash, Exam: 20:00 Constitutional: This is a well developed, well nourished patient who is awake, alert, rt and in no acute distress. Head/Face: Normocephalic, atraumatic. Chest/axilla: Normal chest wall appearance and motion. Nontender with no deformity. No lesions are appreciated. Cardiovascular: Regular rate and rhythm with a normal S1 and S2. No gallops, murmurs, or rubs. Normal PMI, no JVD. No pulse deficits. Respiratory: Lungs have equal breath sounds bilaterally, clear to auscultation and percussion. No rales, rhonchi or wheezes noted. No increased work of breathing, no retractions or nasal flaring. Abdomen/GI: Soft, non-tender, with normal bowel sounds. No distension or tympany. No guarding or rebound. No evidence of tenderness throughout. MS/ Extremity: Pulses equal, no cyanosis. Neurovascular intact. Full, normal range of motion. Neuro: Awake and alert, GCS 15, oriented to person, place, time, and situation. Cranial nerves II-XII grossly intact. Motor strength 5/5 in all extremities. Sensory grossly intact. Cerebellar exam normal. Normal gait. Psych: Awake, alert, with orientation to person, place and time. Behavior, mood, and affect are within normal limits. 20:00 ENT: 1 vesicular lesion noted in the mouth, OP otherwise benign. 20:00 Skin: Red, potentially petechial rash on the feet, arms. There is darker red areas of rash noted on the ankles, in between the toes with mild blistering.. Vital Signs: 20:11 BP 136 / 79; Pulse 102; Resp 18; Temp 99(O); Pulse Ox 98% on R/A; Weight 92.99 kg; me1 Height 6 ft. 5 in. ; Pain 6/10; 21:28 BP 129 / 61; Pulse 106; Resp 18; Pulse Ox 99% on R/A; me1 20:11 Body Mass Index 24.31 (92.99 kg, 195.58 cm) me1 20:11 Pain Scale: Adult me1 MDM: 19:53 Patient medically screened. rt 20:00 Differential Diagnosis Renq-knox-dry-mouth disease, erythema multiforme, petechiae, rt secondary syphilis. Data reviewed: vital signs, nurses notes. Transition of care: After a detail discussion of the patient's case, care is transferred to Jefferson Frances MD. 21:05 ED course: Patient signed out to me by Dr. Mcdaniels. I examined patient which sp3 demonstrates petechial type rash without necrosis. Rashes present on feet, hands and oral mucosa in the oral labia. Rash is painful consistent with coxsackievirus however unusual in an adult. Patient denies any HIV or other immunosuppression pathology or medications. At this point we will discharge patient home given his normal laboratory values and follow-up with dermatology.. 21:12 ED course: Patient is having no chest pain, heart murmur or other concerning findings sp3 for endocarditis. Patient denies IV drug use. Physical exam not consistent with [place] lesions or splinter hemorrhages.. 05/22 19:59 Order name: CBC with Diff; Complete Time: 21:05 rt 05/22 19:59 Order name: CMP; Complete Time: 21:05 rt Administered Medications: No medications were administered Disposition Summary: 05/22/23 21:11 Discharge Ordered Notes: Location: Home sp3 Condition: Stable sp3 Diagnosis - Viral rash, petechiae, ezlb-bsif-zvw-mouth disease sp3 Followup: sp3 - With: Private Physician - When: Upon discharge from the Emergency Department - Reason: Continuance of care Discharge Instructions: - Discharge Summary Sheet rt - Rash, Adult rt Forms: - Medication Reconciliation Form sp3 - Thank You Letter sp3 - Antibiotic Education sp3 - Prescription Opioid Use sp3 - Patient Portal Instructions sp3 - Leadership Thank You Letter sp3 Signatures: Dispatcher [employer] Jefferson Ramos MD MD sp3 Duke Mcdaniels MD MD rt Reny Quinteros, RN RN me1 Corrections: (The following items were deleted from the chart) 20:30 20:00 [employer]+US.RAD.BRZ ordered. EDNM MARISABEL
[2023-05-23 00:47] VITALS: BP 129/61; TEMP 99; O2SAT 99
== END ==
LOC: ER 19:30
DX: B08.4 Enteroviral vesicular stomatitis with exanthem (principal); R23.3 Spontaneous ecchymoses
CPT/HCPCS: 36415; 80053; 85025; 99283